=== PATIENT | female | born 1975 | race Caucasian/White ===

== ENCOUNTER 2023-11-21 15:32 | Emergency (ER) | payer SELFPAY ==
[~2023-11-21] VITALS: Ht 157.5 cm; Wt 77.1 kg
[2023-11-21 15:55] VITALS: O2SAT 98
[2023-11-21] MEDS: DIPHENHYDRAMINE 50MG/ML VIAL IM ONE (21:45)
[2023-11-21] MEDS: KETOROLAC 15MG/ML VIAL IM ONE (21:45)
[2023-11-21] MEDS: METOCLOPRAMIDE HCL 10MG/2ML VIAL IM ONE (21:46)
[2023-11-21 22:30] VITALS: BP 118/59; PULSE 80; RESP 18; TEMP 98.3
== END 2023-11-21 23:05 | disposition home or self-care (01) ==
LOC: ER 15:32
DX: G43.909 Migraine, unspecified, not intractable, without status migrainosus (principal); J45.909 Unspecified asthma, uncomplicated
CPT/HCPCS: 99285; 70450; 96372; J1200; J1885; J2765

== ENCOUNTER 2024-05-29 04:50 | Emergency (ER) | payer MEDICAID ==
[~2024-05-29] VITALS: Ht 154.9 cm; Wt 79.9 kg
[2024-05-29 05:31] VITALS: O2SAT 99
[2024-05-29] MEDS: HYDROCODONE/ACETAMINOPHEN 5/325MG TABLET PO STA (06:47)
[2024-05-29] MEDS ORDERED: CELE100C MT (08:12)
[2024-05-29] MEDS ORDERED: CYCL10TA21 MT (08:12)
[2024-05-29 08:30] VITALS: BP 143/78; PULSE 88; RESP 18; TEMP 37.05852; O2SAT 98
== END 2024-05-29 08:35 | disposition home or self-care (01) ==
LOC: ER 04:50
DX: S16.1XXA Strain of muscle, fascia and tendon at neck level, initial encounter (principal); S29.012A Strain of muscle and tendon of back wall of thorax, initial encounter; Z98.890 Other specified postprocedural states; W51.XXXA Accidental striking against or bumped into by another person, initial encounter; Y93.89 Activity, other specified; Y92.89 Other specified places as the place of occurrence of the external cause; Y99.8 Other external cause status
CPT/HCPCS: 72128; 73070; 81025; 99284

== ENCOUNTER 2024-08-05 16:59 | Emergency (ER) | payer MEDICAID ==
[~2024-08-05] VITALS: Ht 154.9 cm; Wt 82.0 kg
[~2024-08-05 16:59] MED LIST: CELE100C MT; CYCL10TA21 MT
[2024-08-05 17:01] VITALS: O2SAT 100
[2024-08-05] MEDS ORDERED: ALBU18HF2 IH (20:18)
[2024-08-05 20:39] VITALS: BP 118/77; PULSE 80; RESP 18; TEMP 36.7; O2SAT 100
== END 2024-08-05 20:42 | disposition home or self-care (01) ==
LOC: ER 16:59
DX: J45.909 Unspecified asthma, uncomplicated (principal); B34.9 Viral infection, unspecified; R06.02 Shortness of breath; Z79.1 Long term (current) use of non-steroidal anti-inflammatories (NSAID); Z98.890 Other specified postprocedural states
CPT/HCPCS: 71045; 93005; 99283

== ENCOUNTER 2025-02-25 17:29 | Emergency (ER) | payer MEDICAID ==
[~2025-02-25] VITALS: Ht 165.1 cm; Wt 91.0 kg
[~2025-02-25 17:29] MED LIST changes: +ALBU18HF2 IH
[2025-02-25 17:39] VITALS: O2SAT 98
[2025-02-25 18:02] LABS: CLARITY URINE CLEAR (CLEAR); COLOR URINE YELLOW (YELLOW); GLUCOSE URINE NEGATIVE (NEGATIVE); KETONES URINE NEGATIVE (NEGATIVE); LEUKOCYTE ESTERASE URINE NEGATIVE (NEGATIVE); NITRITE URINE NEGATIVE (NEGATIVE); OCCULT BLOOD URINE NEGATIVE (NEGATIVE); PH URINE 6.0 (4.5-8.0); PROTEIN URINE NEGATIVE (NEGATIVE); SPECIFIC GRAVITY URINE 1.006 (1.005-1.030); UROBILINOGEN URINE 0.2 E.U./dL (0.2-1.0)
[2025-02-25] MEDS: ONDANSETRON HCL 4MG/2ML INJ IM ONE (20:45)
[2025-02-25] MEDS: KETOROLAC 30MG/ML VIAL IM ONE (20:58)
[2025-02-25 21:07] LABS: BASOPHILS % 0.7 % (0.0-2.0); EOSINOPHILS % 6.2 % (0.0-5.0); HEMATOCRIT. 36.1 % (36.0-48.0); HEMOGLOBIN. 12.0 g/dL (12.0-16.0); LYMPHOCYTES % 23.8 % (20.0-50.0); MEAN PLATELET VOLUME 8.3 fl (7.4-10.4); MONOCYTES % 9.3 % (2.0-8.0); NEUTROPHILS % 60.0 % (40.0-76.0); PLATELET 255 x1000/uL (130-400); RED BLOOD CELL COUNT 3.79 mill/uL (4.2-5.4); RED CELL DISTRIBUTION WIDTH 13.3 % (11.6-14.6)
[2025-02-25 21:18] LABS: CREATININE 0.8 mg/dL (0.6-1.0); UREA NITROGEN BLOOD 7 mg/dL (9-23)
[2025-02-25 21:20] LABS: ASPARTATE AMINOTRANSFERASE 15 IU/L (<34); BILIRUBIN DIRECT 0.1 mg/dL (<=3.0); BILIRUBIN TOTAL 0.4 mg/dL (0.1-1.0)
[2025-02-25 21:21] LABS: PROTEIN TOTAL 7.3 g/dL (6.0-8.3)
[2025-02-26] MEDS ORDERED: IBUP-2029 MT (00:27)
[2025-02-26 00:44] VITALS: BP 128/52; PULSE 68; RESP 12; TEMP 36.8; O2SAT 98
== END 2025-02-26 00:45 | disposition home or self-care (01) ==
LOC: ER 17:35
DX: R10.32 Left lower quadrant pain (principal); E03.8 Other specified hypothyroidism; Z98.890 Other specified postprocedural states; Z79.1 Long term (current) use of non-steroidal anti-inflammatories (NSAID)
CPT/HCPCS: 99285; 74176; 76830; 76856; 80076; 80048; 81003; 81025; 85025; 36415; 96372; J1885; J2405